=== PATIENT | female | born 1995 | race Caucasian/White ===

== ENCOUNTER 2016-07-24 12:34 | Emergency (ER) | payer MEDICAID ==
--- NOTE | 2016-08-12 08:09 | ER ---
ADMIT: 07/24/2016 RM/LOC: ER [facility] MR#: [id number] [address] [address] MISHA HERNANDEZ [address] [place] [address] Emergency Room Report SEX: F AGE: 20 : 1995 DATE: 07/24/2016 ADDENDUM: The patient comes to the ER because she has had abdominal cramping type pain for the last 2 hours. She is currently eight weeks' . She states it is not that really bad cramp. She is just concerned, she has not seen Dr. Roblero yet. She also has a little pain with urination. On physical exam, she is very nontoxic appearing, alert, does not appear to be in distress. Her urinalysis was positive for nitrites. She was given Tylenol which took her pain away. I wrote a prescription for Macrobid. She needs to increase her fluids, keep her appointment with Dr. Roblero. Follow up with her as needed. Please see my T-sheet. BALDOMERO Nieves / Shant Day MD / suhasl JOB #: [id number] CC: Shant Day MD, Attending Physician Génesis Roblero MD, Family Physician
== END 2016-07-25 04:30 | disposition home or self-care (01) ==
LOC: ER 12:34
DX: O23.41 Unspecified infection of urinary tract in pregnancy, first trimester (principal); Z3A.08 8 weeks gestation of pregnancy

== ENCOUNTER 2016-07-25 05:19 | Day surgery (SDC) | payer MEDICAID ==
--- NOTE | 2016-07-29 19:04 | ER ---
ADMIT: 07/25/2016 RM/LOC: [facility] MR#: [id number] [address] [address] MISHA HERNANDEZ [address] [place] [address] Emergency Room Report SEX: F AGE: 20 : 1995 DATE: 07/25/2016 CHIEF COMPLAINT: Pelvic pain. HISTORY OF PRESENT ILLNESS: The patient is a 20-year-old female, approximately 8 weeks' complaining of urinary frequency, dysuria, and vaginal bleeding, was seen here last night, diagnosed with UTI. Quantitative was 55,000. She states pelvic pain intensified and now passing clots. PAST MEDICAL HISTORY: ILLNESSES: None. OPERATIONS: None. ALLERGIES: NONE. MEDICATIONS: None. SOCIAL HISTORY: . Nonsmoker, nondrinker, no illicit drugs. FAMILY HISTORY: Negative per chart review. REVIEW OF SYSTEMS: A 12-point review of systems negative for all other systems, illnesses, or operations except as outlined above. PHYSICAL EXAMINATION: VITAL SIGNS: Temperature 96.4, pulse 71, respirations 18, BP 114/65, SaO2 of 100%. Weight 56.4 kilos. GENERAL: Nontoxic, non-diaphoretic without jaundice or icterus. HEENT: Normocephalic. No evidence of epistaxis, rhinorrhea, or otorrhea. NECK: Supple without lymphadenopathy or thyromegaly. CHEST: Clear. Breath sounds equal. HEART: Regular rate and rhythm without murmur, gallop, or edema. ABDOMEN: Soft. Tender suprapubically without mass or megaly. Bowel sounds hypoactive. PELVIC: Scant bleed. Bimanual deferred. EMERGENCY DEPARTMENT COURSE: Ultrasound confirms left tubo-ovarian ectopic with free fluid. Blood work pending, history O positive. Two lines were ADMIT: 07/25/2016 RM/LOC: ER [facility] MR#: [id number] [address] [facility] [address] MISHA HERNANDEZ [address] [place] [address] Emergency Room Report SEX: F AGE: 20 : [address] Marroquin of admission, who will contact Dr. Roblero. supervisor screen making made aware of ectopic. Surgery thus notified. DIAGNOSIS: Left tubo-ovarian ectopic with hemoperitoneum. RECOMMENDATION: Emergent surgery for ectopic . ADMISSION/DISCHARGE CONDITION: Stable. CODE STATUS: The patient is a full code. Renan Crawford MD/ suhasl JOB #: [id number] CC: Renan Crawford MD, Attending Physician Génesis Roblero MD, Family Physician Génesis Roblero MD
--- NOTE | 2016-08-02 08:05 | HP ---
ADMIT: 07/25/2016 RM/LOC: [facility] MR#: [id number] [id number] [place], [place] [address] MISHA HERNANDEZ [address] [place] [address] History and Physical SEX: F AGE: 20 : 1995 DATE OF SERVICE: 07/25/2016 CHIEF COMPLAINT: Abdominal pain and bleeding. HISTORY OF PRESENT ILLNESS: The patient is a 20-year-old, 2, para 1-0- 0-1, who presented to the emergency room yesterday with complaints of abdominal cramping. The patient is approximately 8 weeks and has an ultrasound appointment scheduled Dr. Roblero for August 01. However, yesterday she had the onset of sharp abdominal cramping which was significant enough to bring her into the emergency room. She had a quantitative HCG titer of 55,000 in the ER, and a UA with positive nitrites, but no ultrasound was performed. She was diagnosed with UTI and sent home. Early this morning, at approximately 0430 hours, she had increasing severity of abdominal cramping as well as vaginal bleeding which caused her to return to the emergency room. This time, an ultrasound was performed which showed an 8 week within the left adnexa with a heartbeat. The patient also had free fluid noted in the pelvis, and her hemoglobin had decreased approximately 2 g since the prior day. She was diagnosed with a left ectopic and Obstetrics was consulted. PAST MEDICAL HISTORY: Pyelonephritis during previous . PAST SURGICAL HISTORY: None. FAMILY HISTORY: Noncontributory. SOCIAL HISTORY: The patient denies alcohol, tobacco, or illicit drug use. She is a byiu-sx-jstv mom. OBSTETRICAL HISTORY: Term spontaneous vaginal delivery in 2013. MEDICATIONS: 1. vitamins 1 tablet p.o. daily. 2. Macrobid 100 mg p.o. daily prescribed yesterday for UTI. ALLERGIES: NO KNOWN MEDICAL ALLERGIES. REVIEW OF SYSTEMS: Significant for abdominal pain and vaginal bleeding as described in history of present illness. The patient also reports that the pain has been making her nauseous and vomiting. She denies any bowel or bladder changes. PHYSICAL EXAMINATION: GENERAL: Well-developed, well-nourished female. Alert and oriented x3, in no acute distress. VITAL SIGNS: Blood pressure 114/65, pulse 71, respirations 18, temperature 96.4 degrees Fahrenheit, oxygen saturation 100% on room air. HEENT: Head is normocephalic, atraumatic. Pupils are equal and round. Extraocular muscles are intact. NECK: Supple. Trachea midline. Thyroid not palpable. ADMIT: 07/25/2016 RM/LOC: [facility] MR#: [id number] [address] [address] MISHA HERNANDEZ [address] [place] [address] History and Physical SEX: F AGE: 20 : 1995 HEART: Regular rate and rhythm. LUNGS: Clear to auscultation bilaterally. ABDOMEN: Soft, mildly tender to palpation. Nondistended. EXTREMITIES: No clubbing, cyanosis, or edema. NEUROLOGIC: Cranial nerves II through XII grossly intact. 2+ deep tendon reflexes noted. LABORATORY ASSESSMENT: CBC reveals a white count of 15.9, hemoglobin 11.6, hematocrit 33.9, and platelets 209. CMP with sodium of 138, potassium 3.4, chloride 105, CO2 of 24, BUN 7, creatinine 0.7, glucose 112, calcium 9.0. AST 33, ALT 35, alkaline phosphatase 88, total bilirubin 0.9. Beta HCG 45,241. CRP 2.85. Lactic acid 1.4. Ultrasound reveals an 8 week 5 day left tubal with heart tones of 174 beats per minute and a pseudogestational sac with debris within the uterus. The right ovary is normal in size and echotexture. ASSESSMENT AND PLAN: This is a 20-year-old, 2, para 1-0-0-1, with an 8 week 5 day left ectopic with heart tones present. The risks of laparoscopic salpingectomy with removal of ectopic and possible D and C for debris within uterine cavity were discussed with the patient, which include bleeding, infection, and damage to nearby organs. The patient expressed her understanding and agrees to proceed. Surgery has been notified and we will proceed on an urgent basis with this procedure. Ofelia Marroquin MD/ shanta JOB #: [id number] CC: Ofelia Marroquin, Attending Physician Ofelia Marroquin, Family Physician
--- NOTE | 2016-08-02 08:05 | OR ---
ADMIT: 07/25/2016 RM/LOC: [facility] MR#: [id number] [id number] [place], [place] [address] MISHA HERNANDEZ [address] [place] [address] Operative/Delivery Room Report SEX: F AGE: 20 : 1995 SURGERY DATE: 07/25/2016 SURGEON: Ofelia Marroquin MD PREOPERATIVE DIAGNOSES: 1. Left-sided ectopic . 2. Pseudogestational sac within uterine cavity. POSTOPERATIVE DIAGNOSES: 1. Left-sided ectopic . 2. Pseudogestational sac within uterine cavity. PROCEDURES: 1. Laparoscopic left salpingectomy with removal of ectopic and lysis of adhesions. 2. Dilation and curettage. KEYBOARD ACTION ASSEMBLER: Génesis Roblero MD. CONDITION: Good. COMPLICATIONS: None. COUNTS: Correct x4 per operating room staff. ESTIMATED BLOOD LOSS: 550 mL of blood in the pelvis. URINE OUTPUT: Drained prior to procedure. FINDINGS: 1. Anteverted uterus with normal-appearing ovaries, left-sided ectopic , right clubbed fallopian tube, normal-appearing appendix, normal-appearing liver edge, hemoperitoneum. 2. Pelvic adhesive disease concerning for prior pelvic inflammatory disease. DESCRIPTION OF PROCEDURE: The patient was taken to the operating room where general endotracheal anesthesia was obtained without difficulty. She was then prepared and draped in the normal sterile fashion in the dorsal lithotomy position. A posterior weighted speculum was placed in the patient's vagina and the anterior lip of the cervix was grasped with a single-tooth tenaculum. An acorn uterine manipulator was then advanced through the cervix to provide a means to manipulate the uterus. The speculum was removed from the vagina and gloves were changed. Attention was then turned to the abdominal portion of the procedure. A 5 mm skin incision was made in the infraumbilical fold after infiltration with 0.25% Marcaine. The Veress needle was introduced into the peritoneal cavity at a 45-degree angle while tenting the abdominal wall. Intraabdominal placement was confirmed by a drop in intraabdominal pressure with insufflation of CO2 gas. Approximately 2.5 L of CO2 gas was used to obtain pneumoperitoneum. The Veress needle was removed and the 5 mm trocar ADMIT: 07/25/2016 RM/LOC: [facility] MR#: [id number] [address] [address] MISHA HERNANDEZ [address] [place] [address] Operative/Delivery Room Report SEX: F AGE: 20 : 1995 and sleeve advanced into the abdomen where intraabdominal placement was confirmed by the laparoscope. A survey of the patient's pelvis and abdomen revealed the above findings. A second skin incision was made 1/[address] between the anterior superior iliac spine and the umbilicus on the patient's right side after infiltration with 0.25% Marcaine. The 5 mm trocar and sleeve were then advanced into the abdomen under direct visualization. A similar procedure was performed on the left side with an 11 mm port. The suction student services director was used to suction out a significant amount of clot in the low posterior cul-de-sac. After we were able to visualize the patient's anatomy, it was noted that both tubes and ovaries were stuck behind the uterus due to adhesions from the tubes, ovaries, posterior uterus, portions of the epiploic fat around the rectum, and the posterior cul-de-sac. These adhesions were generally thin and filmy and easily taken down with the Thunderbeat and blunt dissection. However, upon lysing these adhesions, we were able to note that the right fallopian tube had a clubbed appearance and the left fallopian tube was enlarged consistent with ectopic . The left fallopian tube did appear to be bleeding and attention was turned to the removal of this tube. The Thunderbeat device was used to sequentially cauterize and cut the mesosalpinx under the fallopian tube and the fallopian tube attachments to the uterus. It was placed in an EndoCatch bag and removed from the patient's abdomen. Several clots that extruded from the tube and were removed from the pelvis with a large suction student services director. Hemostasis was assured and a small portion of the fallopian tube still attached to the cornu of the uterus was then resected and sent to pathology. No bleeding was noted. Copious irrigation of the pelvis was performed and again hemostasis was assured. The 10 mm trocar was then removed and the fascia closed with a single stitch of 0 Vicryl using the Robert-Charmaine device. Pneumoperitoneum was allowed to escape and the skin incisions were closed with 3-0 Vicryl. Due to the large amount of debris including a pseudogestational sac within the uterine cavity, the dilation and curettage was performed. The cervix was sequentially dilated to be able to accommodate the 8 mm suction curette. The suction device was activated and tested. It was found have 55 mmHg mercury. The curette was then advanced gently to the uterine fundus and rotated to clear the uterus of all decidualized tissue and blood. A sharp curettage was then performed until a gritty texture was noted. The suction curette was then readvanced into the uterus to clear the uterus of all remaining blood. All instruments were removed from the vagina with no bleeding noted from the cervix. The patient tolerated the procedure well. Sponge, lap, and needle counts were correct x2 per operating room staff. The patient was awakened, extubated, and taken to the recovery room in stable condition. Ofelia Marroquin MD/ shanta JOB #: [id number] CC: Ofelia Marroquin MD, Attending Physician ADMIT: 07/25/2016 RM/LOC: [facility] MR#: [id number] [address] [place] [id number] MISHA HERNANDEZ [address] [place] [address] Operative/Delivery Room Report SEX: F AGE: 20 : 1995 Ofelia Marroquin MD, Family Physician
== END 2016-07-25 13:55 | disposition home or self-care (01) ==
LOC: ER 05:19 → SSS 08:35
PROC: 10T24ZZ Resection of Products of Conception, Ectopic, Percutaneous Endoscopic Approach (ICD-10-PCS; principal; 2016-07-25)
PROC: 0UDB7ZX Extraction of Endometrium, Via Natural or Artificial Opening, Diagnostic (ICD-10-PCS; principal; 2016-07-25)
PROC: 0UB64ZZ Excision of Left Fallopian Tube, Percutaneous Endoscopic Approach (ICD-10-PCS; principal; 2016-07-25)
DX: O00.10 Tubal pregnancy without intrauterine pregnancy (principal); Z3A.08 8 weeks gestation of pregnancy; Z79.899 Other long term (current) drug therapy